=== PATIENT | male | born 1945 | race Caucasian/White ===

== ENCOUNTER 2017-03-23 22:07 | Inpatient (IN) | payer OTHER ==
[~2017-03-23] VITALS: Ht 172.7 cm; Wt 66.3 kg
[2017-03-23 23:05] LABS: HEMATOCRIT 41.9 % (38.0-50.0); MCH 31.7 PG (29.0-34.0); MCHC 32.9 G/DL (30.0-36.0); MCV 96.3 FL (86-99); MEAN PLAT.VOLUME 9.4 uM^3 (9.0-12.4); PLATELET COUNT 254 K/uL (156-360); RBC DIS.WIDTH-CV 13.8 % (11.8-14.6); RBC DIS.WIDTH-SD 49.3 % (39-53); RED BLOOD COUNT 4.35 M/uL (4.00-5.50); WHITE BLOOD COUNT 11.3 K/uL (4.1-10.2)
[2017-03-23 23:19] LABS: CHLORIDE 107 mEq/L (99-109); POTASSIUM 4.8 mEq/L (3.7-5.4); PTT 24.1 (25-32); SODIUM 140 mEq/L (136-147)
[2017-03-23 23:21] LABS: GLUCOSE 132 mg/dL (70-99)
[2017-03-23 23:22] LABS: ANION GAP 11 MEQ/L (2-14)
[2017-03-23 23:23] LABS: TOTAL BILIRUBIN 0.4 mg/dL (0.0-1.0)
[2017-03-23 23:24] LABS: ALKALINE PHOSPHATASE 123 IU/L (3-129)
[2017-03-23 23:25] LABS: GFR ESTIMATE (CALCULATED) 58 mL/min/
[2017-03-23 23:26] LABS: UREA NITROGEN (BUN) 30 mg/dL (9-23)
[2017-03-23 23:28] LABS: CREATINE KINASE 28 IU/L (1-294); LIPASE 10 U/L (1.0-51.0); TOTAL CK 28 IU/L (1-294)
[2017-03-23 23:34] LABS: CK-MB 0.8 ng/mL (0.0-4.9)
[2017-03-24] VITALS (16 sets, daily range): BP systolic 132–173; BP diastolic 57–81
[2017-03-24] MEDS ORDERED: FOLIC ACID1 MG PO (00:16)
[2017-03-24] MEDS ORDERED: PROTONIX20 MG PO (00:17)
[2017-03-24] MEDS ORDERED: PLAVIX75 MG PO (00:17)
[2017-03-24] MEDS ORDERED: METOPROLOL SUCC50 MG PO (00:18)
[2017-03-24] MEDS ORDERED: REMERON15 M2 PO (00:18)
[2017-03-24] MEDS ORDERED: NEURONTIN100 MG PO (00:19)
[2017-03-24] MEDS ORDERED: PLAQUENIL200 MG PO (00:19)
[2017-03-24] MEDS ORDERED: METHOTREXATE2.5 MG PO (00:20)
[2017-03-24] MEDS ORDERED: MILLIPRED5 MG PO (00:21)
[2017-03-24] MEDS ORDERED: TYLENOL ARTHRI650 MG PO (00:22)
[2017-03-24] MEDS ORDERED: ARTHRITIS PAIN650 M1 PO (00:24)
[2017-03-24] MEDS ORDERED: MULTI-DAY VITA1 EACH PO (00:34)
[2017-03-24] MEDS ORDERED: OMEGA-31000 M1 PO (00:37)
[2017-03-24 01:25] LABS: METH RESISTANT S AUREUS PCR NEGATIVE (NEGATIVE)
[2017-03-24 01:33] LABS: PROBE CHECK PASS; SPECIMEN PROCESSING CONTROL PASS
[2017-03-24 05:57] LABS: HEMATOCRIT 39.1 % (38.0-50.0); MCH 32.3 PG (29.0-34.0); MCHC 33.2 G/DL (30.0-36.0); MEAN PLAT.VOLUME 9.3 uM^3 (9.0-12.4); PLATELET COUNT 247 K/uL (156-360); RBC DIS.WIDTH-CV 14.1 % (11.8-14.6); RBC DIS.WIDTH-SD 50.6 % (39-53); RED BLOOD COUNT 4.03 M/uL (4.00-5.50); WHITE BLOOD COUNT 9.8 K/uL (4.1-10.2)
[2017-03-24 07:02] LABS: ANION GAP 9 MEQ/L (2-14); CHLORIDE 107 MEQ/L (99-109); GFR ESTIMATE (CALCULATED) > 59 mL/min/; GLUCOSE 126 mg/dL (70-99); MAGNESIUM 2.3 mg/dl (1.3-2.7); SAMPLE HEMOLYSIS CHECK 0; SAMPLE ICTERIC CHECK 0; SAMPLE LIPEMIA CHECK 0; SODIUM 140 MEQ/L (136-147); UREA NITROGEN (BUN) 33 mg/dL (9-23)
[2017-03-24 08:40] LABS: ADD MIUA? NO; BILIRUBIN NEGATIVE; BLOOD NEGATIVE; COLOR YELLOW ((YELLOW)); GLUCOSE (STRIP) NEGATIVE; KETONES 5; LEUKOCYTES NEGATIVE; NITRITE NEGATIVE; PROTEIN (STRIP) NEGATIVE; SPECIFIC GRAVITY 1.023 (1.000-1.030); UCUL ADDED? NO; UROBILINOGEN 0.2 MG/DL (0.2-1.0)
[2017-03-24] MEDS ORDERED: ATORVASTATIN CA40 MG PO (16:03)
[2017-03-24] MEDS ORDERED: PREDNISONE1 MG PO (16:04)
[2017-03-24 18:41] LABS: POINT-OF-CARE METER ID UU14162636
[2017-03-25] VITALS (7 sets, daily range): BP systolic 117–155; BP diastolic 50–68
[2017-03-25 05:42] LABS: HEMATOCRIT 34.8 % (38.0-50.0); MCH 31.9 PG (29.0-34.0); MCHC 32.5 G/DL (30.0-36.0); MCV 98.3 FL (86-99); MEAN PLAT.VOLUME 9.7 uM^3 (9.0-12.4); PLATELET COUNT 218 K/uL (156-360); RBC DIS.WIDTH-CV 14.2 % (11.8-14.6); RBC DIS.WIDTH-SD 51.7 % (39-53); RED BLOOD COUNT 3.54 M/uL (4.00-5.50); WHITE BLOOD COUNT 16.5 K/uL (4.1-10.2)
[2017-03-25 06:01] LABS: ANION GAP 8 MEQ/L (2-14); CHLORIDE 111 MEQ/L (99-109); MAGNESIUM 2.3 mg/dl (1.3-2.7); POTASSIUM 5.2 MEQ/L (3.7-5.4); SAMPLE HEMOLYSIS CHECK 0; SAMPLE ICTERIC CHECK 0; SAMPLE LIPEMIA CHECK 0; SODIUM 139 MEQ/L (136-147)
[2017-03-25 06:06] LABS: GFR ESTIMATE (CALCULATED) > 59 mL/min/; GLUCOSE 120 mg/dL (70-99); UREA NITROGEN (BUN) 41 mg/dL (9-23)
[2017-03-25 12:25] LABS: POINT-OF-CARE METER ID UU14174217
[2017-03-25 19:02] LABS: POINT-OF-CARE METER ID UU14208753
[2017-03-26 00:03] VITALS: BP 131/63
[2017-03-26 00:24] LABS: POINT-OF-CARE METER ID UU14149397
[2017-03-26 07:13] VITALS: BP 171/74
[2017-03-26 07:35] LABS: POINT-OF-CARE METER ID UU14208753
[2017-03-26 09:58] LABS: HEMATOCRIT 32.5 % (38.0-50.0); MCH 32.3 PG (29.0-34.0); MCHC 32.6 G/DL (30.0-36.0); MCV 99.1 FL (86-99); MEAN PLAT.VOLUME 9.5 uM^3 (9.0-12.4); PLATELET COUNT 197 K/uL (156-360); RBC DIS.WIDTH-CV 14.5 % (11.8-14.6); RBC DIS.WIDTH-SD 52.4 % (39-53); RED BLOOD COUNT 3.28 M/uL (4.00-5.50)
[2017-03-26 10:31] LABS: ANION GAP 10 MEQ/L (2-14); CHLORIDE 112 MEQ/L (99-109); GFR ESTIMATE (CALCULATED) > 59 mL/min/; GLUCOSE 166 mg/dL (70-99); POTASSIUM 4.4 MEQ/L (3.7-5.4); SAMPLE HEMOLYSIS CHECK 0; SAMPLE ICTERIC CHECK 0; SAMPLE LIPEMIA CHECK 0; SODIUM 143 MEQ/L (136-147); UREA NITROGEN (BUN) 32 mg/dL (9-23)
[2017-03-26 12:43] LABS: POINT-OF-CARE METER ID UU14149397
[2017-03-26 15:39] VITALS: BP 164/74
[2017-03-26 18:05] LABS: POINT-OF-CARE METER ID UU14208753
[2017-03-26 19:07] VITALS: BP 147/72
[2017-03-26 19:18] LABS: APPEARANCE CLEAR/COLORLESS; RED CELL AREA COUNTED 18; RED CELL COUNT 13 /MM^3 (0-1); RED CELL DILUTION 1; WBC AREA COUNTED 18; WBC DILUTION 1; WHITE CELL COUNT 5 /MM^3 (0-5); WHITE CELL RAW COUNT 9
[2017-03-26 19:22] LABS: CSF EOSINOPHILS 0 % (0-25); MONO RAW COUNT 100; MONONUCLEAR WBC'S 100 % (50-90); POLYNUCLEAR WBC'S 0 % (0-3)
[2017-03-26 19:25] LABS: SPINAL FLD COMMENT FEW MACROPHAGES SEEN
[2017-03-26 21:38] LABS: APPEARANCE (RECHECK) CLEAR/COLORLESS; CSF TUBE NUMBER (RECHECK) TUBE #1
[2017-03-26 21:39] LABS: RED CELL AREA COUNTED 18; RED CELL COUNT (RECHECK) 6 /MM^3 (0-1); RED CELL DILUTION 1
[2017-03-26 23:31] VITALS: BP 157/73
[2017-03-27 00:27] LABS: POINT-OF-CARE METER ID UU14208753
[2017-03-27 06:28] LABS: HEMATOCRIT 33.3 % (38.0-50.0); MCH 32.8 PG (29.0-34.0); MCHC 33.3 G/DL (30.0-36.0); MCV 98.5 FL (86-99); MEAN PLAT.VOLUME 9.7 uM^3 (9.0-12.4); PLATELET COUNT 205 K/uL (156-360); RBC DIS.WIDTH-CV 14.4 % (11.8-14.6); RBC DIS.WIDTH-SD 52.4 % (39-53); RED BLOOD COUNT 3.38 M/uL (4.00-5.50); WHITE BLOOD COUNT 12.5 K/uL (4.1-10.2)
[2017-03-27 07:17] LABS: ANION GAP 7 MEQ/L (2-14); CHLORIDE 110 MEQ/L (99-109); GFR ESTIMATE (CALCULATED) > 59 mL/min/; POTASSIUM 4.3 MEQ/L (3.7-5.4); SAMPLE HEMOLYSIS CHECK 1; SAMPLE ICTERIC CHECK 0; SAMPLE LIPEMIA CHECK 0; SODIUM 141 MEQ/L (136-147); UREA NITROGEN (BUN) 26 mg/dL (9-23)
[2017-03-27 07:34] LABS: GLUCOSE 93 mg/dL (70-99)
[2017-03-27 07:37] VITALS: BP 179/80
[2017-03-27 15:47] VITALS: BP 148/70
[2017-03-27 20:39] VITALS: BP 130/60
[2017-03-27 23:26] VITALS: BP 121/58
[2017-03-27 23:30] LABS: HSV CSF Spec Source CSF (())
[2017-03-28 00:37] LABS: POINT-OF-CARE METER ID UU14149397
[2017-03-28 06:19] LABS: POINT-OF-CARE METER ID UU14188577
[2017-03-28 06:48] LABS: HEMATOCRIT 31.3 % (38.0-50.0); MCH 32.5 PG (29.0-34.0); MCHC 33.2 G/DL (30.0-36.0); MCV 97.8 FL (86-99); MEAN PLAT.VOLUME 10.4 uM^3 (9.0-12.4); PLATELET COUNT 193 K/uL (156-360); RBC DIS.WIDTH-CV 14.3 % (11.8-14.6); RBC DIS.WIDTH-SD 50.7 % (39-53); WHITE BLOOD COUNT 10.8 K/uL (4.1-10.2)
[2017-03-28 07:15] LABS: ANION GAP 9 MEQ/L (2-14); CHLORIDE 112 MEQ/L (99-109); GFR ESTIMATE (CALCULATED) > 59 mL/min/; GLUCOSE 91 mg/dL (70-99); MAGNESIUM 1.8 mg/dl (1.3-2.7); POTASSIUM 4.2 MEQ/L (3.7-5.4); SAMPLE HEMOLYSIS CHECK 0; SAMPLE ICTERIC CHECK 0; SAMPLE LIPEMIA CHECK 0; SODIUM 142 MEQ/L (136-147); UREA NITROGEN (BUN) 29 mg/dL (9-23)
[2017-03-28 07:20] VITALS: BP 159/74
[2017-03-28 12:18] LABS: POINT-OF-CARE METER ID UU14188577
[2017-03-28 16:11] VITALS: BP 125/61
[2017-03-28 23:46] VITALS: BP 169/81
[2017-03-28 23:46] LABS: POINT-OF-CARE METER ID UU14188577
[2017-03-29 00:49] LABS: POINT-OF-CARE METER ID UU14149397
[2017-03-29 06:17] LABS: HEMATOCRIT 31.9 % (38.0-50.0); MCH 31.5 PG (29.0-34.0); MCHC 32.6 G/DL (30.0-36.0); MCV 96.7 FL (86-99); MEAN PLAT.VOLUME 10.3 uM^3 (9.0-12.4); NRBC (%) 0.5 /100 WBC (0-0); PLATELET COUNT 207 K/uL (156-360); RBC DIS.WIDTH-CV 14.4 % (11.8-14.6); RBC DIS.WIDTH-SD 50.7 % (39-53)
[2017-03-29 06:39] LABS: POINT-OF-CARE METER ID UU14149397
[2017-03-29 06:51] LABS: ANION GAP 10 MEQ/L (2-14); CHLORIDE 113 MEQ/L (99-109); GFR ESTIMATE (CALCULATED) > 59 mL/min/; GLUCOSE 88 mg/dL (70-99); MAGNESIUM 1.8 mg/dl (1.3-2.7); POTASSIUM 4.5 MEQ/L (3.7-5.4); SAMPLE HEMOLYSIS CHECK 0; SAMPLE ICTERIC CHECK 0; SAMPLE LIPEMIA CHECK 0; SODIUM 143 MEQ/L (136-147); UREA NITROGEN (BUN) 24 mg/dL (9-23)
[2017-03-29 07:21] VITALS: BP 180/84
[2017-03-29 09:15] VITALS: BP 164/82
[2017-03-29 11:44] LABS: POINT-OF-CARE METER ID UU14149397
[2017-03-29 16:06] VITALS: BP 124/77
[2017-03-29 17:40] LABS: POINT-OF-CARE METER ID UU14149397
[2017-03-29 21:16] LABS: POINT-OF-CARE METER ID UU14149397
[2017-03-29 23:48] VITALS: BP 154/73
[2017-03-30 00:09] LABS: POINT-OF-CARE METER ID UU14188577
[2017-03-30 03:38] VITALS: BP 170/79
[2017-03-30 05:50] LABS: POINT-OF-CARE METER ID UU14188577
[2017-03-30 07:10] LABS: HEMATOCRIT 34.3 % (38.0-50.0); MCH 31.8 PG (29.0-34.0); MCHC 33.2 G/DL (30.0-36.0); MCV 95.8 FL (86-99); MEAN PLAT.VOLUME 9.9 uM^3 (9.0-12.4); NRBC (%) 0.7 /100 WBC (0-0); PLATELET COUNT 199 K/uL (156-360); RBC DIS.WIDTH-CV 14.3 % (11.8-14.6); RED BLOOD COUNT 3.58 M/uL (4.00-5.50); WHITE BLOOD COUNT 11.4 K/uL (4.1-10.2)
[2017-03-30 07:58] LABS: ANION GAP 8 MEQ/L (2-14); CHLORIDE 111 MEQ/L (99-109); GFR ESTIMATE (CALCULATED) > 59 mL/min/; GLUCOSE 80 mg/dL (70-99); MAGNESIUM 1.7 mg/dl (1.3-2.7); POTASSIUM 3.6 MEQ/L (3.7-5.4); SAMPLE HEMOLYSIS CHECK 0; SAMPLE ICTERIC CHECK 0; SAMPLE LIPEMIA CHECK 0; SODIUM 143 MEQ/L (136-147); UREA NITROGEN (BUN) 20 mg/dL (9-23)
[2017-03-30 08:01] VITALS: BP 186/84
[2017-03-30 11:22] VITALS: BP 145/95
[2017-03-30 12:24] VITALS: BP 153/68
[2017-03-30] MEDS ORDERED: ROCEPHIN2 GM/50 ML IV (13:06)
[2017-03-30] MEDS ORDERED: FLAGYL500 MG PO (13:08)
[2017-03-30] MEDS ORDERED: VALTREX1000 MG PO (13:08)
[2017-03-30] MEDS ORDERED: DEXAMETHASONE4 MG PO (13:22)
[2017-03-30] MEDS ORDERED: LEVETIRACETAM500 MG PO (13:22)
[2017-03-30] MEDS ORDERED: ASPIR-LOW81 MG PO (13:22)
[2017-03-30 16:09] VITALS: BP 174/79
== END 2017-03-30 16:54 | disposition home or self-care (01) | DRG 94 ==
LOC: EDBD 22:07 → EME 22:07 → 3EAST 23:03 → 4WEST 23:03 → EDOF 23:03 → 4WEST 23:58 → 3EAST 03-25 14:03
PROVIDERS: Emergency Medicine; Hospitalist; Internal Medicine
PROC: 009U3ZX Drainage of Spinal Canal, Percutaneous Approach, Diagnostic (ICD-10-PCS; principal; 2017-03-26)
DX: G06.0 Intracranial abscess and granuloma (principal); G04.90 Encephalitis and encephalomyelitis, unspecified; N17.9 Acute kidney failure, unspecified; J44.9 Chronic obstructive pulmonary disease, unspecified; R56.9 Unspecified convulsions; R22.0 Localized swelling, mass and lump, head; I25.10 Atherosclerotic heart disease of native coronary artery without angina pectoris; I10 Essential (primary) hypertension; K76.89 Other specified diseases of liver; K21.9 Gastro-esophageal reflux disease without esophagitis; E78.5 Hyperlipidemia, unspecified; I16.0 Hypertensive urgency; Z95.5 Presence of coronary angioplasty implant and graft; I73.9 Peripheral vascular disease, unspecified; M06.9 Rheumatoid arthritis, unspecified; Z87.891 Personal history of nicotine dependence
CPT/HCPCS: 62270; 70553; 71010; 74160; 80048; 80053; 81003; 82550; 82553; 82945; 82948; 83690; 83735; 84100; 84157; 85027; 85610; 85730; 87040; 87102; 87529 90; 87641; 87899; 88108; 89051; 93005; 99281; 99285; J0133; J0360; J0696; J1100; J1815; J1953; J2405; J3010; J7030; J7050; J8540; S0028; S0030